=== PATIENT | female | born 1995 | race Caucasian/White ===

== ENCOUNTER 2017-12-25 08:34 | Emergency (ER) | payer OTHER ==
[~2017-12-25] VITALS: Ht 149.9 cm; Wt 67.6 kg
[2017-12-25 08:44] VITALS: Ht 149.9 cm; Wt 67.6 kg
[2017-12-25 10:06] VITALS: BP 112/75
== END 2017-12-25 10:06 | disposition home or self-care (01) ==
LOC: ED 08:34
DX: J31.0 Chronic rhinitis (principal)

== ENCOUNTER 2018-01-15 14:49 | Emergency (ER) | payer OTHER ==
[~2018-01-15] VITALS: Ht 149.9 cm; Wt 67.6 kg
[2018-01-15 14:53] VITALS: Ht 149.9 cm; Wt 67.6 kg
[2018-01-15 16:56] VITALS: BP 112/75
== END 2018-01-15 16:56 | disposition home or self-care (01) ==
LOC: ED 14:49
DX: J03.90 Acute tonsillitis, unspecified (principal)
CPT/HCPCS: J1100

== ENCOUNTER 2018-06-21 02:39 | Emergency (ER) | payer OTHER ==
[~2018-06-21] VITALS: Ht 149.9 cm; Wt 67.6 kg
[2018-06-21 02:44] VITALS: Ht 149.9 cm; Wt 67.6 kg
[2018-06-21 03:30] VITALS: BP 105/65
== END 2018-06-21 03:30 | disposition home or self-care (01) ==
LOC: ED 02:39
DX: R11.2 Nausea with vomiting, unspecified (principal); Z90.89 Acquired absence of other organs
CPT/HCPCS: Q0162

== ENCOUNTER 2018-10-21 18:04 | Emergency (ER) | payer OTHER ==
[~2018-10-21] VITALS: Ht 149.9 cm; Wt 70.3 kg
[2018-10-21 18:09] VITALS: Ht 149.9 cm; Wt 70.3 kg
[2018-10-21 20:27] VITALS: BP 129/80
== END 2018-10-21 20:27 | disposition home or self-care (01) ==
LOC: ED 18:04
DX: S96.911A Strain of unspecified muscle and tendon at ankle and foot level, right foot, initial encounter (principal); Z90.89 Acquired absence of other organs; W18.49XA Other slipping, tripping and stumbling without falling, initial encounter; Y93.89 Activity, other specified; Y92.89 Other specified places as the place of occurrence of the external cause; Y99.8 Other external cause status

== ENCOUNTER 2019-04-05 17:31 | Emergency (ER) | payer OTHER ==
[~2019-04-05] VITALS: Ht 149.9 cm; Wt 73.9 kg
[2019-04-05 17:37] VITALS: Ht 149.9 cm; Wt 73.9 kg
[2019-04-05 18:10] LABS: BASOPHIL % 0.4 % (0-2); PLATELET COUNT 320 x10^3mcL (130-400); RED CELL DISTRIBUTION WIDTH 12.6 % (11.5-14.5)
[2019-04-05 18:32] LABS: CALCIUM 9.7 mg/dL (8.5-10.1); CARBON DIOXIDE 27.2 mmol/L (21-32); CHLORIDE SERUM 108 mmol/L (98-107); CREATININE SERUM 0.6 mg/dL (0.6-1.0); GFR1 > 60 mL/min; GLUCOSE SERUM 97 mg/dL (74-106); POTASSIUM SERUM 3.9 mmol/L (3.5-5.1); SODIUM SERUM 147 mmol/L (136-145)
[2019-04-05 18:36] LABS: ALKALINE PHOSPHATASE 80 U/L (46-116); ALT/SGPT 27 U/L (14-59); AST/SGOT 15 U/L (15-37); TOTAL PROTEIN, SERUM 7.2 g/dL (6.4-8.2)
[2019-04-05 18:44] LABS: T3 TOTAL 1.14 ng/mL
[2019-04-05 19:14] VITALS: BP 122/78
[2019-04-05 19:25] LABS: FREE T4 1.11 ng/dL (0.76-1.46); FREE THYROXINE INDEX 3.3 ug/dL (1.4-4.5); T4(THYROXINE) 9.4 ug/dL (4.7-13.3)
== END 2019-04-05 19:37 | disposition home or self-care (01) ==
LOC: ED 17:31
PROVIDERS: Emergency Medicine
DX: M54.2 Cervicalgia (principal); R06.02 Shortness of breath; J02.9 Acute pharyngitis, unspecified; G89.29 Other chronic pain; Z90.89 Acquired absence of other organs
CPT/HCPCS: 36600; 84439; J2060; Q9967

== ENCOUNTER 2020-08-28 18:03 | Emergency (ER) | payer OTHER ==
[~2020-08-28] VITALS: Ht 149.9 cm; Wt 67.1 kg
[2020-08-28 19:06] VITALS: Ht 149.9 cm; Wt 67.1 kg
[2020-08-28 20:46] VITALS: BP 123/83
== END 2020-08-28 20:46 | disposition home or self-care (01) ==
LOC: ED 18:03
DX: S66.912A Strain of unspecified muscle, fascia and tendon at wrist and hand level, left hand, initial encounter (principal); W22.8XXA Striking against or struck by other objects, initial encounter; Y93.89 Activity, other specified; Y92.89 Other specified places as the place of occurrence of the external cause; Y99.8 Other external cause status
CPT/HCPCS: A4570; J1885

== ENCOUNTER 2020-12-05 18:26 | Emergency (ER) | payer OTHER ==
[~2020-12-05] VITALS: Ht 149.9 cm; Wt 69.4 kg
[2020-12-05 18:37] VITALS: Ht 149.9 cm; Wt 69.4 kg
[2020-12-05 20:42] VITALS: BP 124/81
== END 2020-12-05 20:42 | disposition home or self-care (01) ==
LOC: ED 18:26
DX: R20.0 Anesthesia of skin (principal); R07.89 Other chest pain
CPT/HCPCS: Q0162